=== PATIENT | female | born 1980 | race Caucasian/White ===

== ENCOUNTER 2016-10-31 07:14 | Emergency (ER) | payer MEDICAID, OTHER ==
[2016-10-31 07:19] VITALS: BMI 24.5
[2016-10-31 07:26] VITALS: O2SAT 98
--- NOTE | 2016-10-31 08:50 | C.PDOC ---
History Of Present Illness The patient reports that she injured the left great toe 3 hours [employer]. Patient thinks she was someone stepped on her toe. Denies numbness or weakness. Time Seen by Provider: 10/31/16 07:29 Chief Complaint (Nursing): Lower Extremity Problem/Injury History Per: Patient History/Exam Limitations: no limitations Onset/Duration Of Symptoms: Persistent Current Symptoms Are (Timing): Still Present Pain Scale Rating Of: 7 Past Medical History Reviewed: Historical Data, Nursing Documentation, Vital Signs Vital Signs: Last Vital Signs Temp 98.1 F 10/31/16 09:11 Pulse 87 10/31/16 09:11 Resp 16 10/31/16 09:11 BP 132/83 10/31/16 09:11 Pulse Ox 98 10/31/16 10:16 - Medical History PMH: Asthma - [facility] Procedures INJECT/INFUSE NEC (04/28/13) Family History: States: Unknown Family Hx - Social History Hx Alcohol Use: Yes Hx Substance Use: Yes - Immunization History Hx Tetanus Toxoid Vaccination: No Hx Influenza Vaccination: No Hx Pneumococcal Vaccination: No Physical Exam - Physical Exam Appears: Non-toxic, No Acute Distress Skin: Normal Color, Warm, Dry Head: Atraumatic, Normacephalic Extremity: Normal ROM, Tenderness (LEFT GREAT TOE), Capillary Refill (< 2 SEC.) , No Deformity, Swelling (LEFT GREAT TOE) Extremity: Bilateral: Normal Color And Temperature Pulses: Left Dorsalis Pedis: Normal, Right Dorsalis Pedis: Normal Neurological/Psych: Oriented x3, Normal Speech, Normal Cognition, Normal Motor, Normal Sensation ED Course And Treatment O2 Sat by Pulse Oximetry: 98 (RA) Pulse Ox Interpretation: Normal - Other Rad Left Foot Great Toe XR X-Ray: Interpreted by Me, Viewed By Me Interpretation: small non-displaced fracture distal phalanx Progress Note: Treated with Tylenol. Left foot x-ray ordered and reviewed by me. Medical Decision Making Medical Decision Making: Ortho shoe applied. Toe taped. Disposition - Disposition Referrals: Podiatry Clinic [Outside] Disposition: HOME/ ROUTINE Disposition Time: 08:48 Condition: GOOD Additional Instructions: follow up with the Dental Laboratory Technician within 1-2 days. Return if worsened. 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 - Scribe Statement The provider has reviewed the documentation as recorded by the Ashlyniberi Allan All medical record entries made by the Mylene were at my direction and personally dictated by me. I have reviewed the chart and agree that the record accurately reflects my personal performance of the history, physical exam, medical decision making, and the department course for this patient. I have also personally directed, reviewed, and agree with the discharge instructions and disposition.
[2016-10-31 09:12] VITALS: BP 132/83; PULSE 87; RESP 16; TEMP 98.1
--- NOTE | 2016-10-31 09:24 | RAD ---
PROCEDURE: Radiographs of the left great toe. TECHNIQUE:: AP radiograph of the left foot, with oblique and lateral view of the left great toe. COMPARISON: None. FINDINGS: BONES: Transverse fracture through the distal phalanx. The finding is marked on the study for review. JOINTS: Normal. SOFT TISSUES: Soft tissue swelling attests to the acuity of the fracture. OTHER FINDINGS: None. IMPRESSION: Acute fracture 1st digit. Concordant results with the preliminary interpretation rendered by the emergency department physician procedure.
== END 2016-10-31 09:35 | disposition home or self-care (01) ==
LOC: C.ER 07:14
DX: S92.425A Nondisplaced fracture of distal phalanx of left great toe, initial encounter for closed fracture (principal); W50.0XXA Accidental hit or strike by another person, initial encounter